=== PATIENT | male | born 1950 | race Caucasian/White ===

== ENCOUNTER → 2016-12-05 | Outpatient (CLI) | payer BC, OTHER ==
[~2016-12-05] MED LIST: PRT/40 PO
== END | disposition home or self-care (01) ==
LOC: C.LABSPEC 12:39
PROVIDERS: ATTEND Internal Medicine
DX: R35.1 Nocturia (principal)

== ENCOUNTER → 2017-01-12 | Outpatient (CLI) | payer OTHER ==
--- NOTE | 2017-01-12 10:46 | DIAGNOSTIC IMAGING REPORT ---
LEFT SHOULDER 3 VIEWS HISTORY: LEFT SHOULDER PAIN COMPARISON: None. FINDINGS: There is no fracture or dislocation. Soft tissues are unremarkable. The left clavicle is intact. Mild cartilage space narrowing within the glenohumeral joint. IMPRESSION: Mild degenerative changes within the left shoulder. No fracture or dislocation. Electronically signed by: Troy Arambula M.D. 01/12/2017 10:44 AM Dictated Date/Time: 01/12/2017 10:43 AM
== END | disposition home or self-care (01) ==
LOC: C.RAD 10:01
PROVIDERS: ATTEND Internal Medicine
DX: M25.512 Pain in left shoulder (principal)

== ENCOUNTER → 2017-08-13 | Outpatient (CLI) | payer OTHER ==
[2017-08-13 14:00] LABS: BLOOD UREA NITROGEN 16 mg/dl (7-18); BUN/CREATININE RATIO 15.7 (10-20); CALCIUM 9.2 mg/dl (8.5-10.1); CARBON DIOXIDE 26 mmol/L (21-32); CHLORIDE 106 mmol/L (98-107); CHOLESTEROL 189 mg/dl (0-200); GLUCOSE 93 mg/dl (70-99); POTASSIUM 3.9 mmol/L (3.5-5.1); SODIUM 139 mmol/L (136-145); TRIGLYCERIDES 67 mg/dl (0-150); VERY LOW DENSITY LIPOPROT CALC 13 mg/dl
[2017-08-13 14:04] LABS: CHOLESTEROL/HDL RATIO 3.9; HDL CHOLESTEROL 49 mg/dl
== END | disposition home or self-care (01) ==
LOC: C.LABSPEC 12:05
PROVIDERS: ATTEND Internal Medicine
DX: E66.09 Other obesity due to excess calories (principal); Z00.00 Encounter for general adult medical examination without abnormal findings; E78.5 Hyperlipidemia, unspecified

== ENCOUNTER 2017-11-05 20:50 | Emergency (ER) | payer OTHER ==
[~2017-11-05] VITALS: Ht 175.3 cm; Wt 98.8 kg
[~2017-11-05 20:50] MED LIST changes: +PANT40TA2 PO; -PRT/40 PO
[2017-11-05 21:01] VITALS: TEMP 36.7; Ht 175.3 cm; Wt 98.8 kg
[2017-11-05] MEDS ORDERED: OPTIRAY 320 IV PRN (21:45)
[2017-11-05 22:01] LABS: BASO % 0.4 %; BASO ABS # 0.03 K/uL (0-0.2); EOS % 0.8 %; EOS ABS # 0.06 K/uL (0-0.5); HEMATOCRIT 41.4 % (42-52); HEMOGLOBIN 14.5 g/dL (14.0-18.0); IG# 0.02 K/uL (0.00-0.02); LYMPH % 24.2 %; LYMPH ABS # 1.77 K/uL (1.2-3.4); MEAN CELL VOLUME 87.7 fL (80-100); MEAN CORPUSCULAR HEMOGLOBIN 30.7 pg (25-34); MEAN PLATELET VOLUME 9.6 fL (7.4-10.4); MONO % 9.7 %; MONO ABS # 0.71 K/uL (0.11-0.59); NEUT % 64.6 %; NEUT ABS # 4.72 K/uL (1.4-6.5); PLATELET COUNT 191 K/uL (130-400); RED CELL DISTRIBUTION WIDTH CV 12.4 % (11.5-14.5); RED CELL DISTRIBUTION WIDTH SD 40.1 fL (36.4-46.3); WHITE BLOOD COUNT 7.31 K/uL (4.8-10.8)
[2017-11-05] MEDS ORDERED: ACET-1256 PO (22:07)
[2017-11-05 22:18] LABS: ALBUMIN 3.8 gm/dl (3.4-5.0); CALCIUM 8.8 mg/dl (8.5-10.1); CREATININE 1.11 mg/dl (0.60-1.40); POTASSIUM 3.8 mmol/L (3.5-5.1)
[2017-11-05 22:21] LABS: TOTAL PROTEIN 7.5 gm/dl (6.4-8.2)
--- NOTE | 2017-11-05 22:37 | EMERGENCY ROOM VISIT NOTE ---
History First contact with patient: 21:33 Chief Complaint: ABDOMINAL PAIN Stated Complaint: ABDOMINAL PAIN, L SIDE Nursing Triage Summary: pt c/o intermittent abd pain x2 weeks. reports pain in left abdomen and "sometimes" in right upper abdomen. states "I had a doctors appointment scheduled but it got better so i canceled." reports hx of gallbladder and appendix removed. hx of diverticulitis. pt associates nausea, denies vomiting. pt reports he has been constipated. pt states "also i have this left arm pain tonight, i was a little worried about that." pt calm/cooperative, alert and oriented x4. breathing WNL, lungs clear. abd rounded, soft, nontender. bowel sounds WNL. History of Present Illness The patient is a 67 year old male who presents to the Emergency Room with complaints of abdominal pain which has been intermittent for several weeks and worsened this afternoon. The patient states that the pain is typically located in the left lower abdomen but he occasionally has pains in the right lower and right upper abdomen as well. The pain occasionally radiates into the left lower back. He has had associated nausea but no vomiting. He reports that at times, he has diarrhea and at times has been constipated. He has a history of diverticulitis but states this does not feel similar. He has a history of appendectomy and cholecystectomy. He rates the discomfort a 4/10. Nothing worsens the pain are makes the pain better. He is not taking any medications for pain. Additionally, the patient reports he has had some pain in his left forearm today. He denies any injury to the arm. Review of Systems A complete 10 point review of systems was reviewed with the patient with pertinent positives and negatives as per history of present illness. All else were negative. Past Medical/Surgical History Medical Problems: (1) Stomach problems Surgical Problems: (1) Hx of appendectomy Family History Cancer Lung disease Social History Smoking Status: Never Smoker Alcohol Use: occasionally Drug Use: none Occupation Status: employed Current/Historical Medications Scheduled Pantoprazole (Pantoprazole Sodium), 40 MG PO QAM Scheduled PRN Acetaminophen (Tylenol), 1,000 MG PO Q6 PRN for Pain Physical Exam Vital Signs Date Time Temp Pulse Resp B/P (MAP) Pulse Ox O2 Delivery O2 Flow Rate FiO2 11/06/17 00:00 58 18 127/83 96 11/05/17 22:45 68 18 140/89 95 Room Air 12/28/17 21:01 36.7 68 20 168/106 99 Room Air Physical Exam VITALS: Vitals are noted on the nurse's note and reviewed by myself. Vital signs stable. GENERAL: This is a 67-year-old male in no acute distress, nondiaphoretic, well- developed well-nourished. SKIN: The skin was without rashes. MOUTH: Mucous membranes moist. NECK: Supple without nuchal rigidity. HEART: Regular rate and rhythm without murmurs gallops or rubs. LUNGS: Clear to auscultation bilaterally without wheezes, rales or rhonchi. ABDOMEN: Positive bowel sounds x 4. Soft, mild tenderness to palpation in the left lower quadrant. No guarding or rebound tenderness. NEURO: Patient was alert and oriented to person place and time. Medical Decision & Procedures ER Provider Diagnostic Interpretation: ABD/PELVIS IV CONTRAST ONLY CLINICAL HISTORY: 67 years-old Male presenting with left sided abdominal pain, hx diverticulitis. TECHNIQUE: Multidetector CT of the abdomen and pelvis was performed after the administration of intravenous contrast. IV contrast: 93 mL of Optiray 320. A dose lowering technique was used consistent with the principles of ALARA (as low as reasonably achievable). COMPARISON: 12/30/2015. CT DOSE (mGy.cm): The estimated cumulative dose is 612.93 mGy.cm. FINDINGS: Cable Wirer topogram: Cholecystectomy clips. Lung bases: Lungs and pleural spaces clear. Normal heart size. No pericardial or pleural effusion. Liver: Normal morphology. No liver lesion. Patent hepatic vasculature. Biliary: Mild biliary ductal prominence likely a reservoir effect in the post cholecystectomy state. Gallbladder surgically absent. Pancreas: Normal. Spleen: Normal. Adrenal glands: Normal. Kidneys and ureters: Punctate nonobstructing calculus in the right kidney. Normal renal parenchymal enhancement. Few parapelvic left renal cyst noted at the lower pole. No hydronephrosis. Ureters normal. Bladder: Normal. Pelvic organs: Prostate enlargement likely secondary to benign prostatic hyperplasia. Bowel: Few diverticula noted at the junction of the descending and sigmoid colon. No pericolonic inflammatory change. The appendix is surgically absent. No bowel obstruction. Peritoneal cavity: No free fluid or intraperitoneal gas. Lymph nodes: No enlarged lymph nodes in the abdomen or pelvis. Vasculature: Atherosclerosis of the normal caliber abdominal aorta. IVC patent. Abdominal wall: Normal. Musculoskeletal: Degenerative changes of the spine. IMPRESSION: 1. Few diverticula at the junction of the descending and sigmoid colon. No evidence of diverticulitis. No acute intra-abdominal pathology. 2. Punctate nonobstructing right renal calculus. 3. Prostatomegaly. Laboratory Results 11/05/17 21:49 Red Blood Count 4.72, Mean Corpuscular Volume 87.7, Mean Corpuscular Hemoglobin 30.7, Mean Corpuscular Hemoglobin Concent 35.0, Mean Platelet Volume 9.6, Neutrophils (%) (Auto) 64.6, Lymphocytes (%) (Auto) 24.2, Monocytes (%) (Auto) 9.7, Eosinophils (%) (Auto) 0.8, Basophils (%) (Auto) 0.4, Neutrophils # (Auto) 4.72, Lymphocytes # (Auto) 1.77, Monocytes # (Auto) 0.71, Eosinophils # (Auto) 0.06, Basophils # (Auto) 0.03 11/05/17 21:49 Test 11/05/17 21:30 11/05/17 21:49 11/05/17 22:44 Urine Color YELLOW Urine Appearance CLEAR (CLEAR) Urine pH 7.0 (4.5-7.5) Urine Specific [place] 1.015 (1.000-1.030) Urine Protein NEG (NEG) Urine Glucose (UA) NEG (NEG) Urine Ketones NEG (NEG) Urine Occult Blood NEG (NEG) Urine Nitrite NEG (NEG) Urine Bilirubin NEG (NEG) Urine Urobilinogen NEG (NEG) Urine Leukocyte Esterase NEG (NEG) White Blood Count 7.31 K/uL (4.8-10.8) Red Blood Count 4.72 M/uL (4.7-6.1) Hemoglobin 14.5 g/dL (14.0-18.0) Hematocrit 41.4 % (42-52) Mean Corpuscular Volume 87.7 fL (80-100) Mean Corpuscular Hemoglobin 30.7 pg (25-34) Mean Corpuscular Hemoglobin Concent 35.0 g/dl (32-36) Platelet Count 191 K/uL (130-400) Mean Platelet Volume 9.6 fL (7.4-10.4) Neutrophils (%) (Auto) 64.6 % Lymphocytes (%) (Auto) 24.2 % Monocytes (%) (Auto) 9.7 % Eosinophils (%) (Auto) 0.8 % Basophils (%) (Auto) 0.4 % Neutrophils # (Auto) 4.72 K/uL (1.4-6.5) Lymphocytes # (Auto) 1.77 K/uL (1.2-3.4) Monocytes # (Auto) 0.71 K/uL (0.11-0.59) Eosinophils # (Auto) 0.06 K/uL (0-0.5) Basophils # (Auto) 0.03 K/uL (0-0.2) RDW Standard Deviation 40.1 fL (36.4-46.3) RDW Coefficient of Variation 12.4 % (11.5-14.5) Immature Granulocyte % (Auto) 0.3 % Immature Granulocyte # (Auto) 0.02 K/uL (0.00-0.02) Anion Gap 7.0 mmol/L (3-11) Est Creatinine Clear Calc Drug Dose 75.9 ml/min Estimated GFR () 79.8 Estimated GFR (Non- 68.8 BUN/Creatinine Ratio 15.7 (10-20) Calcium Level 8.8 mg/dl (8.5-10.1) Total Bilirubin 0.4 mg/dl (0.2-1) Aspartate Amino Transf (AST/SGOT) 24 U/L (15-37) Alanine Aminotransferase (ALT/SGPT) 26 U/L (12-78) Alkaline Phosphatase 57 U/L (45-117) Total Protein 7.5 gm/dl (6.4-8.2) Albumin 3.8 gm/dl (3.4-5.0) Globulin 3.7 gm/dl (2.5-4.0) Albumin/Globulin Ratio 1.0 (0.9-2) Troponin I < 0.015 ng/ml (0-0.045) ECG Rate (beats per minute): 62 Rhythm: normal sinus Findings: no acute ischemic change, no ectopy Comparison ECG Date: no prior available ED Course The patient was evaluated as above. Labs were drawn and IV access was obtained. CT of the abdomen and pelvis was performed and read by radiology as above. Patient was reevaluated and findings were discussed. Discharge instructions were reviewed with the patient. The patient verbalized understanding of my assessment and treatment plan and was discharged home in good condition. Medical Decision Differential diagnosis includes diverticulitis, colitis, kidney stone, urinary tract infection, prostatitis, gastritis, among others. The patient is a 67-year-old male who presents today complaining of intermittent abdominal pain. Labs revealed no leukocytosis. LFTs and kidney functions were within normal limits. Urinalysis was not suggestive of infection. EKG was interpreted by myself and shows a normal sinus rhythm without ischemic findings. CT was performed and read by radiology with no acute findings. Patient was informed of all findings. The etiology of his abdominal pain is unclear at this time. He will follow up with his primary care provider and has an appointment scheduled this coming week. Based on the patient's presentation and work up, I feel the patient is stable for outpatient treatment. The patient was educated to return to the emergency department for any worsening of their current condition or new/concerning symptoms. He will follow up with his PCP. Medication Reconcilliation Current Medication List: was personally reviewed by me Blood Pressure Screening Patient's blood pressure: Normal blood pressure Impression Primary Impression: Intermittent abdominal pain Departure Information Dispostion Home / Self-Care Condition GOOD Referrals Deion Coker M.D. (PCP) Patient Instructions My [facility] Additional Instructions You have been treated in the Emergency Department for your Abdominal Pain. Laboratory results and imaging studies have ruled out any emergent causes for your abdominal pain which would warrant admission or surgery. For pain control, you can use the following [id number] medicines (if >12 yo): - Regular strength (325mg/tab) Tylenol (acetaminophen) 2 tabs every 4-6 hours as needed. Do not exceed 12 tablets in a 24 hour period. Avoid taking more than 4 grams (4000 mg) of Tylenol per day. This includes any other sources of acetaminophen you may take on a regular basis. - Regular strength (200 mg/tab) Advil (ibuprofen) 1-2 tabs every 4-6 hours as needed. Do not exceed a dose of 3200 mg per day. Drink plenty of water and stay well hydrated. As with any trip to the Emergency Department, you should follow-up with your Primary Care Provider from today's visit. Keep your follow-up appointment which is scheduled next week. Return to the emergency department if your symptoms persist despite treatment plan outlined above or if the following symptoms occur: fevers, chills, worsening nausea/vomiting, worsening pain, blood in your stool or urine.
--- NOTE | 2017-11-05 22:45 | DIAGNOSTIC IMAGING REPORT ---
ABD/PELVIS IV CONTRAST ONLY CLINICAL HISTORY: 67 years-old Male presenting with left sided abdominal pain, hx diverticulitis. TECHNIQUE: Multidetector CT of the abdomen and pelvis was performed after the administration of intravenous contrast. IV contrast: 93 mL of Optiray 320. A dose lowering technique was used consistent with the principles of ALARA (as low as reasonably achievable). COMPARISON: 12/30/2015. CT DOSE (mGy.cm): The estimated cumulative dose is 612.93 mGy.cm. FINDINGS: Keyboarding Clerk topogram: Cholecystectomy clips. Lung bases: Lungs and pleural spaces clear. Normal heart size. No pericardial or pleural effusion. Liver: Normal morphology. No liver lesion. Patent hepatic vasculature. Biliary: Mild biliary ductal prominence likely a reservoir effect in the post cholecystectomy state. Gallbladder surgically absent. Pancreas: Normal. Spleen: Normal. Adrenal glands: Normal. Kidneys and ureters: Punctate nonobstructing calculus in the right kidney. Normal renal parenchymal enhancement. Few parapelvic left renal cyst noted at the lower pole. No hydronephrosis. Ureters normal. Bladder: Normal. Pelvic organs: Prostate enlargement likely secondary to benign prostatic hyperplasia. Bowel: Few diverticula noted at the junction of the descending and sigmoid colon. No pericolonic inflammatory change. The appendix is surgically absent. No bowel obstruction. Peritoneal cavity: No free fluid or intraperitoneal gas. Lymph nodes: No enlarged lymph nodes in the abdomen or pelvis. Vasculature: Atherosclerosis of the normal caliber abdominal aorta. IVC patent. Abdominal wall: Normal. Musculoskeletal: Degenerative changes of the spine. IMPRESSION: 1. Few diverticula at the junction of the descending and sigmoid colon. No evidence of diverticulitis. No acute intra-abdominal pathology. 2. Punctate nonobstructing right renal calculus. 3. Prostatomegaly. Electronically signed by: Randy Perez M.D. 11/05/2017 10:43 PM Dictated Date/Time: 11/05/2017 10:36 PM
[2017-11-06] VITALS: BP 127/83; PULSE 58; O2SAT 96
== END 2017-11-06 | disposition home or self-care (01) ==
LOC: C.EDB 20:51 → C.EDC 11-06
DX: R10.9 Unspecified abdominal pain (principal)